=== PATIENT | male | born 1980 | race Caucasian/White ===

== ENCOUNTER 2023-10-06 16:52 | Emergency (ER) | payer BC ==
[2023-10-06 17:04] VITALS: BP 107/73; PULSE 56; RESP 18; TEMP 98.3; BMI 23.7
== END 2023-10-06 17:56 | disposition home or self-care (01) ==
LOC: FER 16:52
DX: S63.502A Unspecified sprain of left wrist, initial encounter (principal); X50.1XXA Overexertion from prolonged static or awkward postures, initial encounter; Y92.9 Unspecified place or not applicable
CPT/HCPCS: 73090-TC-LT-FY; 73110-TC-LT-FY; 73130-TC-LT-FY; 99283-25